=== PATIENT | male | born 1975 | race Caucasian/White ===

== ENCOUNTER 2018-01-19 13:08 | Outpatient (CLI) | payer MEDICARE | END 2018-01-19 13:09 | disposition home or self-care (01) | LOC: BICCT 13:08 | PROVIDERS: ATTEND Oral & Maxillofacial Surgery | DX: T84.60XA Infection and inflammatory reaction due to internal fixation device of unspecified site, initial encounter (principal) | CPT/HCPCS: 70486 ==